=== PATIENT | female | born 1965 | race Hispanic/Latino ===

== ENCOUNTER 2025-03-08 17:30 | Emergency (ER) | payer OTHER ==
[~2025-03-08] VITALS: Ht 157.5 cm; Wt 44.9 kg
[2025-03-08] MEDS: TRAMADOL HCL 50 MG TAB PO ONE (19:53)
[2025-03-08 21:55] VITALS: PULSE 63; RESP 14; TEMP 97.5
[2025-03-08 22:33] VITALS: BP 148/83; O2SAT 99
== END 2025-03-08 22:00 | disposition home or self-care (01) ==
LOC: ER 19:10
DX: S60.222A Contusion of left hand, initial encounter (principal); M25.532 Pain in left wrist; W22.8XXA Striking against or struck by other objects, initial encounter; Y99.0 Civilian activity done for income or pay
CPT/HCPCS: 99284